=== PATIENT | female | born 1975 | race Hispanic/Latino ===

== ENCOUNTER 2016-11-28 18:25 | Emergency (ER) | payer OTHER ==
[~2016-11-28] VITALS: Ht 165.1 cm; Wt 72.7 kg
[~2016-11-28 18:25] MED LIST: CEPH500C PO; CIPR-231 PO; HYDR-4003 PO; TRAM50TA2 PO
[2016-11-28 18:40] VITALS: BP 154/90; PULSE 90; RESP 16; O2SAT 98
[2016-11-28] MEDS ORDERED: TRAM50TA2 PO ×2 (18:44→20:57)
--- NOTE | 2016-11-28 20:44 | ED.REPORT ---
HPI-General Illness Date of Service Nov 28, 2016 ED Provider: Cal Smith MD The patient is a 41 year old female w/ a hx of UTI and admit for pyelonephritis in 2016 who presents to the ED due to upper jaw swelling onset today. When she brushed her teeth this morning she noticed slight bleeding. She c/o soreness in the jaw area. She denies fever. She had her wisdom teeth pulled out 4 years ago. Nursing Notes Stated Complaint: UPPER JAW PAIN, POSS INFECTION Chief Complaint: General Complaint Nursing Notes Reviewed: Yes Allergies: Coded Allergies: Contrast Media (Verified Allergy, Severe, HIVES, 11/28/16) naproxen (Verified Allergy, Severe, Anaphylaxis, 11/28/16) ibuprofen (Verified Allergy, Intermediate, Abdominal Pain, 11/28/16) Upset stomach lorazepam (Verified Allergy, Unknown, 11/28/16) Scheduled Clindamycin (Clindamycin) 300 Mg Capsule 600 MG PO TID Fluconazole (Diflucan) 150 Mg Tablet 150 MG PO ONCE Scheduled PRN Tramadol (Tramadol) 50 Mg Tablet 50 MG PO Q4H PRN PRN For Pain Tramadol (Tramadol) 50 Mg Tablet 100 MG PO Q6H PRN PRN For Pain General Time Seen by MD: 20:43 Chief Complaint Other (jaw swelling) Hx Obtained From: Patient Arrived By: Walk-in Sudden in Onset?: Yes Onset Occurred: 5 - 8 hours ago Symptom Duration: Since onset Severity: Current: Mild Recent Healthcare: No recent doctor visit, No recent hospitalization Similar Sx Previous: No Past Medical History Past Medical History Admit for pyelonephritis 2016 UTI Past Surgical History None Smoking History Never Smoker Social History Alcohol Use: Denies alcohol use Drug Use: Denies drug use Ambulatory Status Independent Review of Systems Full Review of Systems Constitutional: Denies: Fever Musculoskeletal: Reports: Joint swelling (jaw) Complete sys rev & neg: except as marked. Physical Exam Vital Signs Vital Signs Date Time Temp Pulse Resp B/P Pulse Ox O2 Delivery O2 Flow Rate FiO2 11/28/16 18:40 36.3 90 16 154/90 98 Room Air Initial VS: Reviewed General/Constitutional: Well-developed, Well-nourished Head / Eyes: Atraumatic, Normocephalic, PERRL Respiratory: Breath sounds normal, Clear to auscultation, No respiratory distress Cardiovascular: Regular rate & rhythm, Heart sounds normal, Intact distal pulses Abdomen / GI: Soft, Non-tender, No guarding, No rebound, No distention Extremities: Vascular intact, Neuro intact, No swelling, No tenderness Skin: Warm, Dry, No cyanosis Neurologic: Alert, Oriented, Nonfocal Psychiatric: Mood/affect normal, Behavior normal, Normal thought content ENT: Airway patent, Pharynx NL swelling in gums bilateral moderate gingivivitis no teeth that are obviously abscessing moderate poor repair floor of mouth is fine no swelling in airway uvula mobile tongue mobile Interpretation & Diagnostics Lab Results Interpretation Test 11/28/16 21:10 Hold Segal Top Tube Received (Received) Re-Eval/Medical Decision Med Decision/Clinical Course 41-year-old presents with facial swelling and tenderness in her gums and tenderness also in her teeth consistent with dental abscess. Home with clindamycin, single dose Decadron, and follow up with dentist DAWIT. No evidence of oral or airway compromise. All of her tenderness is symptoms are confined to the upper jaw. Counseled Regarding: Diagnosis, Lab results, Need for follow-up, When/why to return to ED Discharge & Departure Primary Impression: Dental abscess Disposition: Home Discharge Condition All VS Reviewed: Yes Condition: Stable Additional Instructions: Follow up with your dentist this next week. I am giving you a prescription for an antibiotic to take two tablets three x/day for your oral infection. return to the Emergency Room for any new or worsening symptoms, particularly worsening swelling or pain, or difficulty swallowing or breathing or speaking. Tramadol four times daily if needed for pain. Never exceed eight tablets daily of tramadol. Referrals: Víctor Schwarz DO (PCP) Scribe Attestation Portion of this note were transcribed by Latesha Farmer. I, Dr. Smith, personally performed the history, physical exam, and medical decision-making: I reviewed and confirmed the accuracy for the information in the transcribed note. Signed by: doe Leonardo, 11/28/16 2200 copies to: Víctor Schwarz Christopher W MD Nov 28, 2016 20:44 Latesha Farmer Nov 28, 2016 20:51
[2016-11-28] MEDS ORDERED: cefTRIAXone Inj 2,000 MG in Dextrose 5% Minibag Plus 50 ML IV ONE (20:45)
[2016-11-28] MEDS ORDERED: Dexamethasone 20 mg/2 mL Oral Solution PO ONE (20:55)
[2016-11-28] MEDS ORDERED: CLIN-78 PO (20:57)
[2016-11-28] MEDS ORDERED: 0.9% Sodium Chloride 100 ML ONE (21:06)
[2016-11-28] MEDS ORDERED: FLUC150T48 PO (22:17)
== END 2016-11-28 22:19 | disposition home or self-care (01) ==
LOC: SED 18:25
DX: K04.7 Periapical abscess without sinus (principal); Z87.440 Personal history of urinary (tract) infections; Z87.448 Personal history of other diseases of urinary system; Z91.041 Radiographic dye allergy status; Z88.6 Allergy status to analgesic agent; Z88.8 Allergy status to other drugs, medicaments and biological substances
CPT/HCPCS: 96365; 99284; J0696

== ENCOUNTER 2017-02-02 19:36 | Emergency (ER) | payer OTHER ==
[~2017-02-02] VITALS: Ht 165.1 cm; Wt 71.8 kg
[~2017-02-02 19:36] MED LIST changes: -CEPH500C PO; -CIPR-231 PO; +CLIN-78 PO; +FLUC150T48 PO; -HYDR-4003 PO
[2017-02-02 19:38] VITALS: BP 168/94; PULSE 78; RESP 12; O2SAT 100
--- NOTE | 2017-02-02 19:52 | ED.REPORT ---
HPI-Dental/Mouth Prob Date of Service February 02, 2017 ED Provider: History of Present Illness: dental pain, appointment with primary care tomorrow in family medication. no dental care. reporting dental pain is ongoing. Nursing Notes Stated Complaint: JAW AND TEETH PAIN Chief Complaint: Dental Nursing Notes Reviewed: Yes Allergies: Coded Allergies: Contrast Media (Verified Allergy, Severe, HIVES, 11/28/16) naproxen (Verified Allergy, Severe, Anaphylaxis, 11/28/16) ibuprofen (Verified Allergy, Intermediate, Abdominal Pain, 11/28/16) Upset stomach lorazepam (Verified Allergy, Unknown, 11/28/16) Scheduled Clindamycin (Clindamycin) 300 Mg Capsule 600 MG PO TID Fluconazole (Diflucan) 150 Mg Tablet 150 MG PO ONCE Scheduled PRN Tramadol (Tramadol) 50 Mg Tablet 50 MG PO Q4H PRN PRN For Pain Tramadol (Tramadol) 50 Mg Tablet 100 MG PO Q6H PRN PRN For Pain General Time Seen by MD: 19:50 Chief Complaint Tooth pain Hx Obtained From: Patient Onset Occurred: More than a week ago... (>6 months) Symptom Duration: Since onset Past Medical History Past Medical History Admit for pyelonephritis 2016 UTI Past Surgical History None Smoking History Never Smoker Social History Alcohol Use: Denies alcohol use Drug Use: Denies drug use Other Social History: Occupation no work or school 02/02/2017 Ambulatory Status Independent Review of Systems Basic Review of Systems Eyes: Vision NL, No discharge Skin: No bruising, No rash, No itch Psychiatric: Normal thought content Physical Exam Initial Vital Signs Vital Signs (First) Date Time Temp Pulse Resp B/P Pulse Ox O2 Delivery O2 Flow Rate FiO2 02/02/17 19:38 36.4 78 12 168/94 100 Room Air Initial VS: Reviewed, Vital signs normal General/Constitutional: Well-developed, Well-nourished Head / Eyes: Atraumatic, Normocephalic, PERRL Respiratory: Breath sounds normal, Clear to auscultation, No respiratory distress Cardiovascular: Regular rate & rhythm, Heart sounds normal, Intact distal pulses Abdomen / GI: Soft, Non-tender, No guarding, No rebound, No distention Back: No CVA tenderness Lymphatic: No lymphadenopathy Extremities: Vascular intact, Neuro intact, No swelling, No tenderness Skin: Warm, Dry, No cyanosis Neurologic: Alert, Oriented, Nonfocal Psychiatric: Mood/affect normal, Behavior normal, Normal thought content ENT: Atraumatic, Airway patent, Mucous membranes moist, Pharynx NL, No peritonsillar abscess, No trismus, Nose exam NL, No sinus tenderness, No facial swelling, Gums/dentition NL oral exam shows no focal point of swelling, able to open mouth 3 fingers wide. Missing several teeth but remaining teeth do not show obvious decat. No bleeding noted. no increased lymph node enlargement Neck: Atraumatic, Supple, No meningismus, Full range of motion General/Constitutional: Awake, Alert, No acute distress, Well appearing, Well developed, Well hydrated Respiratory / Chest: Atraumatic, Breath sounds NL, Breath sounds = bilat, No respiratory distress Cardiovascular: Heart rate NL, Regular rhythm, Heart sounds NL, No gallop Re-Eval/Medical Decision Med Decision/Clinical Course 41 year old female presents for evualation of ongoing dental pain. patient has appointment tomorrow with primary care per her report. ELECTROTHERAPIST indicates monthly visists for tramadol. No sign of stomatitis or lip laceration Discharge & Departure Primary Impression: Toothache Disposition: Home Patient Instructions: Dental Caries (ED) Additional Instructions: Please see a dentist for definitive care for your teeth. Keep the appointment that you have scheduled with primary care tomorrow. [facility] is open Tuesday thru Tuesday. Please call them and see if you can be seen on a walk in basis. Start amoxicillin 500 mg 3 times a day for 10 days. Use tramadol for the evening. You are also being provided a prescription for diflucan. I am sorry you are having dental distress. Please use the dental resources listed. Referrals: Colin Roca DO (PCP) [facility] EDSupervising Provider for APC: Chucho Keller DO copies to: Colin Roca Sue ARNP February 02, 2017 19:52
== END 2017-02-02 20:18 | disposition home or self-care (01) ==
LOC: SED 19:36
DX: K08.89 Other specified disorders of teeth and supporting structures (principal); Z91.041 Radiographic dye allergy status; Z88.8 Allergy status to other drugs, medicaments and biological substances; Z88.5 Allergy status to narcotic agent; Z87.440 Personal history of urinary (tract) infections

== ENCOUNTER 2017-05-05 23:47 | Emergency (ER) | payer OTHER ==
[~2017-05-05] VITALS: Ht 165.1 cm; Wt 71.8 kg
[2017-05-06 00:04] VITALS: BP 149/87; PULSE 76; RESP 24; O2SAT 99
--- NOTE | 2017-05-06 01:41 | ED.REPORT ---
HPI-Rash / Abscess Date of Service May 06, 2017 ED Provider: Ned Armstrong MD The pt is a 42 y/o female with no pertinent hx who presents to the ED complaining of a painful insect bite on the medial aspect of right knee, onset yesterday. Associated sx include erythema around the bite. She denies itching. Nursing Notes Stated Complaint: SKIN RASH/ ABSCESS Chief Complaint: Skin Rash/Abscess Nursing Notes Reviewed: Yes Allergies: Coded Allergies: Contrast Media (Verified Allergy, Severe, HIVES, 05/06/17) naproxen (Verified Allergy, Severe, Anaphylaxis, 05/06/17) ibuprofen (Verified Allergy, Intermediate, Abdominal Pain, 05/06/17) Upset stomach lorazepam (Verified Allergy, Unknown, 05/06/17) Scheduled Clindamycin (Clindamycin) 300 Mg Capsule 600 MG PO TID Fluconazole (Diflucan) 150 Mg Tablet 150 MG PO ONCE Scheduled PRN Tramadol (Tramadol) 50 Mg Tablet 50 MG PO Q4H PRN PRN For Pain Tramadol (Tramadol) 50 Mg Tablet 100 MG PO Q6H PRN PRN For Pain General Time Seen by MD: 01:40 Chief Complaint Other (insect bite) Hx Obtained From: Patient Arrived By: Walk-in Onset Occurred: Yesterday Symptom Duration: Since onset Location: : Other (medial aspect of right knee) Quality: Painful Severity: Current: Mild Severity: Maximum: Mild Recent Healthcare: No recent doctor visit Similar Sx Previous: No Past Medical History Past Medical History Admit for pyelonephritis 2016 UTI Past Surgical History None Smoking History Never Smoker Social History Alcohol Use: Denies alcohol use Drug Use: Denies drug use Other Social History: Occupation no work or school 02/02/2017 Ambulatory Status Independent Review of Systems Reports: painful and erythematous insect bite on the medial aspect of right knee Denies: itching around the insect bite Complete sys rev & neg: except as marked. Physical Exam Initial Vital Signs Vital Signs (First) Date Time Temp Pulse Resp B/P Pulse Ox O2 Delivery O2 Flow Rate FiO2 05/06/17 00:04 36.7 76 24 149/87 99 Room Air Initial VS: Reviewed, Vital signs normal Head / Eyes: Atraumatic, Normocephalic Neck: Supple, Non-tender, Full range of motion Respiratory: No respiratory distress Cardiovascular: Regular rate & rhythm Abdomen / GI: No guarding, No distention Extremities: Vascular intact, Neuro intact, No swelling, No tenderness Neurologic: Alert, Oriented, Nonfocal General/Constitutional: Awake, Alert, No acute distress, Well appearing, Cooperative Skin: Atraumatic, Color NL, Warm, Dry Insect bite of the medical aspect of right knee with surrounding area of erythema. No abscess. Re-Eval/Medical Decision Med Decision/Clinical Course 42-year-old female with an insect bite on the medial right knee. There is a local allergic reaction versus minor cellulitis. She will be treated with topical Bactroban and triamcinolone. Follow up as needed for worsening. Re-Evaluation/Progress : Time of Eval: 01:45 Re-Evaluation/Progress Note: Rechecked pt. Discussed diagnosis and plan to discharge. Pt understands and agrees with the plan. F/U instruction and RTER warning given. All questions addressed. Counseled Regarding: Diagnosis, Need for follow-up, When/why to return to ED Discharge & Departure Impression: Primary Impression: Insect bite Encounter type: initial encounter Qualified Code: W57.XXXA - Bitten or stung by nonvenomous insect and other nonvenomous arthropods, initial encounter Disposition: Home Discharge Condition All VS Reviewed: Yes Condition: Stable Patient Instructions: Insect Bite or Sting (ED) Additional Instructions: This appears to be an insect bite with a local allergic reaction or minor infection. Triamcinolone applied 3 times a day will reduce the redness and inflammation. Mupirocin applied 3 times a day will fight any infection. Follow -up as needed for significant worsening with your regular doctor. Referrals: Colin Roca DO (PCP) Scribe Attestation Portions of this note were transcribed by Jazmin King. I,, personally performed the history,physical exam and medical decision-making;I reviewed and confirmed the accuracy of the information in the transcribed note. Signed by Sanjay Morgan. 05/06/17 copies to: Colin Roca Howard L MD May 06, 2017 01:41 Jazmin King May 06, 2017 01:43
[2017-05-06] MEDS ORDERED: Triamcinolone 0.1% 30 Gm Cream TOPICAL ONE (01:45)
[2017-05-06] MEDS ORDERED: Mupirocin 2% 22 Gm Ointment TOPICAL ONE (01:45)
== END 2017-05-06 02:31 | disposition home or self-care (01) ==
LOC: SED 23:47
DX: S80.261A Insect bite (nonvenomous), right knee, initial encounter (principal); W57.XXXA Bitten or stung by nonvenomous insect and other nonvenomous arthropods, initial encounter; Y93.89 Activity, other specified; Y92.89 Other specified places as the place of occurrence of the external cause; Y99.8 Other external cause status; Z88.5 Allergy status to narcotic agent; Z88.6 Allergy status to analgesic agent; Z91.041 Radiographic dye allergy status